=== PATIENT | male | born 1990 | race African-American/Black ===

== ENCOUNTER 2017-02-09 06:43 | Emergency (ER) | payer OTHER ==
[~2017-02-09] VITALS: Ht 185.4 cm; Wt 80.0 kg
[2017-02-09 06:44] VITALS: BP 139/91; PULSE 86; RESP 16; TEMP 98.5; O2SAT 99
[2017-02-09] MEDS ORDERED: BACT800T5 PO (07:18)
[2017-02-09] MEDS ORDERED: IBUP800T23 PO (07:18)
[2017-02-09] MEDS ORDERED: CEPH-460 PO (07:18)
--- NOTE | 2017-02-09 07:18 | PD ---
HPI Chief Complaint: Lump, Cyst, Hernia Time Seen by Provider: 07:16 Travel History International Travel<30 days: No Contact w/Intl Traveler<30days: No Traveled to known affect area: No History of Present Illness HPI 26-year-old male presents to the emergency Department with complaint of a "rising" to his left armpit since yesterday. Denies fever, vomiting. Has not taken any medications or tried any treatments to relieve these symptoms. No known relieving factors. Has no medical complaints. No known allergies. No other modifying factors or associated signs and symptoms. PFSH Past Medical History Diminished Hearing: No Immunizations Current: Yes Past Surgical History Other Surgery: Yes ("300 STITCHES ON LEFT HIP") Social History Alcohol Use: Yes (SOCIALLY) Tobacco Use: Yes (0.5 PPD) Substance Use: No Allergies-Medications (Allergen,Severity, Reaction): Coded Allergies: No Known Allergies (Unverified , 02/09/17) Reported Meds & Prescriptions Reported Meds & Active Scripts Active Ibuprofen 800 Mg Tab 800 Mg PO Q6HR PRN Bactrim DS (Sulfamethoxazole-Trimethoprim) 800-160 Mg Tab 1 Tab PO BID 10 Days Keflex (Cephalexin) 500 Mg Cap 500 Mg PO Q6H 10 Days Review of Systems Except as stated in HPI: all other systems reviewed are Neg Physical Exam Narrative GENERAL: Well-nourished, well-developed male patient, in no acute distress; afebrile, nontoxic-appearing SKIN: There is an indurated area to the left axilla which measures about 1 cm in diameter. It is nonfluctuant and there is no pointing or drainage. There is a zone of inflammation around it but no lymphangitis. No axillary lymphadenopathy. HEAD: Atraumatic. Normocephalic. EYES: Pupils equal and round. No scleral icterus. No injection or drainage. ENT: Mucosa pink and moist. Airway patent. NECK: Trachea midline. No lymphadenopathy. CARDIOVASCULAR: Regular rate. RESPIRATORY: No accessory muscle use. GASTROINTESTINAL: Flat. MUSCULOSKELETAL: No obvious deformities. No clubbing. No cyanosis. No edema. NEUROLOGICAL: Awake and alert. Oriented 3. No obvious cranial nerve deficits. Motor grossly within normal limits. Normal speech. PSYCHIATRIC: Appropriate mood and affect; insight and judgment normal. Data Data Last Documented VS Vital Signs Date Time Temp Pulse Resp B/P Pulse Ox O2 Delivery O2 Flow Rate FiO2 02/09/17 06:44 98.5 86 16 139/91 99 MDM Medical Decision Making Medical Screen Exam Complete: Yes Emergency Medical Condition: Yes Medical Record Reviewed: Yes Differential Diagnosis Abscess, cellulitis, folliculitis Narrative Course 26-year-old male physical exam consistent with a nonfluctuant abscess to the left axilla. Patient is afebrile and nontoxic-appearing. Denies fever, vomiting. Instructed patient to return to emergency Department for incision and drainage with worsening of the abscess despite antibiotics. Keflex, Bactrim , ibuprofen prescribed for home. Instructed patient to follow up with primary care provider. Patient verbalizes understanding and agreement with treatment plan. Patient is medically cleared and stable for discharge. Discussed reasons to return to the emergency department. Patient agrees with treatment plan. The patients vital signs are stable and the patient is stable for outpatient follow-up and treatment. Patient discharged home, stable and in no acute distress. Diagnosis Primary Impression: Abscess of axilla, left Referrals: Primary Care Physician Patient Instructions: Abscess (ED), Abscess Follow-up (ED), Abscess Incision and Drainage (ED), General Instructions Departure Forms: Tests/Procedures, Work Release Enter return to work date: Feb 11, 2017 Additional Instructions: Complete full course of antibiotics Warm compresses to the affected area Keep area clean and dry Ibuprofen or Tylenol as directed and as needed for pain and inflammation Follow-up with primary care provider Return to emergency department immediately with worsening of symptoms Med/Other Pt SpecificInfo: Prescription(s) given Scripts Ibuprofen 800 Mg [id number] Mg PO Q6HR PRN (PAIN) #30 TAB Ref 0 Prov:Mahi Kaiser 02/09/17 Sulfamethoxazole-Trimethoprim (Bactrim DS)800-160 Mg Tab1 Tab PO BID 10 Days Ref 0 Prov:Mhai Kaiser 02/09/17 Cephalexin (Keflex)500 Mg [id number] Mg PO Q6H 10 Days Ref 0 Prov:Mhai Kaiser 02/09/17 Disposition: 01 DISCHARGE HOME Condition: Stable Mahi Kaiser Feb 09, 2017 07:18
== END 2017-02-09 07:25 | disposition home or self-care (01) ==
LOC: NEPD 06:43
DX: L02.412 Cutaneous abscess of left axilla (principal); F17.210 Nicotine dependence, cigarettes, uncomplicated
CPT/HCPCS: 99284

== ENCOUNTER 2017-03-04 22:58 | Emergency (ER) | payer OTHER ==
[~2017-03-04] VITALS: Ht 185.4 cm; Wt 77.3 kg
[~2017-03-04 22:58] MED LIST: BACT800T5 PO; CEPH-460 PO; IBUP800T23 PO
[2017-03-04 23:09] VITALS: BP 165/113; PULSE 74; RESP 16; TEMP 98.3; O2SAT 99
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
[2017-03-05] MEDS ORDERED: IBUP400T20 PO (00:20)
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
[2017-03-05] MEDS ORDERED: CYCL1TAB29 PO (00:23)
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
[2017-03-05] MEDS ORDERED: KETOROLAC TROMETHAMINE 60 MG/2 ML (IM) VIAL IM ONE (00:30)
[2017-03-05] MEDS ORDERED: CYCLOBENZAPRINE HCL 10 MG TAB PO ONE (00:30)
[2017-03-05 00:50] VITALS: BP 168/82
== END 2017-03-05 01:20 | disposition home or self-care (01) ==
LOC: NEPD 22:58
DX: M54.2 Cervicalgia (principal); M54.5 Low back pain; V29.9XXA Motorcycle rider (driver) (passenger) injured in unspecified traffic accident, initial encounter; Y92.414 Local residential or business street as the place of occurrence of the external cause
CPT/HCPCS: 70450; 71010; 72100; 72125; 96372; 99285; J1885

== ENCOUNTER 2017-08-19 11:44 | Emergency (ER) | payer OTHER ==
[~2017-08-19] VITALS: Ht 185.4 cm; Wt 71.0 kg
[~2017-08-19 11:44] MED LIST changes: +CYCL10TA PO; +IBUP1TAB5 PO; +IBUP1TAB7 PO; -IBUP800T23 PO
[2017-08-19 11:53] VITALS: BP 140/81; PULSE 94; RESP 16; TEMP 98.8; O2SAT 97
[2017-08-19] MEDS ORDERED: BUPIVACAINE HCL PF 0.5% 10 ML VIAL INFIL ONE (12:45)
[2017-08-19] MEDS ORDERED: LIDOCAINE HCL 1% 50 ML VIAL INFIL ONE (12:45)
[2017-08-19] MEDS ORDERED: LIDOCAINE HCL 1% 20 ML VIAL INFIL ONE (13:00)
--- NOTE | 2017-08-19 13:11 | RADRPT ---
EXAM DATE/TIME: 08/19/2017 12:51 [facility] COMPARISON: No previous studies available for comparison. INDICATIONS : Right thumb smashed by forklift at [facility] today. MEDICAL HISTORY : None. SURGICAL HISTORY : None. ENCOUNTER: Initial ACUITY: 1 day PAIN SCORE: 4/10 LOCATION: Right thumb FINDINGS: Examination of the first digit of the right hand demonstrates a comminuted fracture of the tip of the first distal phalangeal bone. No radiopaque foreign bodies are seen. The soft tissues are intact. CONCLUSION: There is a comminuted fracture of the tip of the first distal phalange of bone. Linwood Miguel MD on August 19, 2017 at 13:09 Board Certified Radiologist. This report was verified electronically.
[2017-08-19] MEDS ORDERED: NAPR500 PO (15:00)
[2017-08-19] MEDS ORDERED: CEPHALEXIN MONOHYDRATE 500 MG CAP PO ONE (15:00)
[2017-08-19] MEDS ORDERED: CEPH-460 PO (15:00)
--- NOTE | 2017-08-19 15:05 | PD ---
HPI Chief Complaint: Injury Time Seen by Provider: 12:29 Travel History International Travel<30 days: No Contact w/Intl Traveler<30days: No Traveled to known affect area: No History of Present Illness HPI Patient comes emergency Department complaining of right thumb injury that occurred while at work shortly prior to arrival. Patient reports that he injured his thumb accidentally having it crushed by a machine at work. Patient denies any pain with this or radiation of pain. Denies doing anything for this prior coming emergency department. Reports tetanus shot is up-to-date. Patient denies anything making symptoms better or worse. Denies any numbness or tingling. PFSH Past Medical History Medical History: Denies Significant Hx Diminished Hearing: No Immunizations Current: Yes Tetanus Vaccination: < 5 Years Past Surgical History Other Surgery: Yes ("300 STITCHES ON LEFT HIP") Social History Alcohol Use: Yes (SOCIALLY) Tobacco Use: Yes (0.5 PPD) Substance Use: Yes (MJ) Allergies-Medications (Allergen,Severity, Reaction): Coded Allergies: No Known Allergies (Unverified Allergy, Unknown, 08/19/17) Reported Meds & Prescriptions Reported Meds & Active Scripts Active Naprosyn (Naproxen) 500 Mg Tab 500 Mg PO Q12HR PRN Keflex (Cephalexin) 500 Mg Cap 500 Mg PO Q8H Review of Systems Except as stated in HPI: all other systems reviewed are Neg Physical Exam Narrative GENERAL: Well-developed, well nourished, in no acute distress, and non-ill appearing. SKIN: Laceration noted to the nail bed of the right thumb. Patient is neurovascularly intact distally. There is no foreign body noted. Reports mild tenderness to palpation. No crepitus. Full range of motion right thumb. No tenderness over the anatomical snuffbox. HEAD: Atraumatic. Normocephalic. EYES: Pupils equal and round. EOMI. No scleral icterus. No injection or drainage. ENT: No nasal bleeding or discharge. Mucous membranes pink and moist. NECK: Trachea midline. Supple. No nuclear rigidity. CARDIOVASCULAR: Capillary refill less than 2 seconds. RESPIRATORY: No accessory muscle use. No respiratory distress. MUSCULOSKELETAL: No obvious deformities. No clubbing. No cyanosis. No edema. Full range of motion. NEUROLOGICAL: Awake and alert. No obvious cranial nerve deficits. Motor grossly within normal limits. Normal speech. PSYCHIATRIC: Appropriate mood and affect; insight and judgment normal. Data Data Last Documented VS Vital Signs Date Time Temp Pulse Resp B/P (MAP) Pulse Ox O2 Delivery O2 Flow Rate FiO2 08/19/17 11:53 98.8 94 16 140/81 (100) 97 Orders Orders Bupivacaine Pf 0.5% Inj (Marcaine Pf 0.5 (08/19/17 12:45) Finger ([id number]) (08/19/17 ) Lidocaine 1% Inj (Xylocaine 1% Inj) (08/19/17 13:00) Cephalexin (Keflex) (08/19/17 15:00) Ed Discharge Order (08/19/17 14:58) Splint Or Brace Apply/Monitor (08/19/17 14:58) Finger Splint (08/19/17 ) [facility] Medical Decision Making Medical Screen Exam Complete: Yes Emergency Medical Condition: Yes Interpretation(s) Last Impressions Finger X-Ray 08/19/17 0000 Signed Impressions: Service Date/Time: August 12:51 - CONCLUSION: There is a comminuted fracture of the tip of the first distal phalange of bone. Linwood Miguel MD Differential Diagnosis Laceration, abrasion, contusion, fracture, crush injury Narrative Course The patient sustained a fracture. Distally appears neurovascularly intact, without evidence of neurovascular injury nor compartment syndrome. Tendon exam also was intact. The effected limb was splinted. The patient was discharged on pain medication along with fracture and splint care instructions and given warnings for vascular compromise. The patient is to follow up with hand surgeon. The patient agrees with plan. The patient suffered laceration to the thumb. There was no evidence to suggest foreign bodies. Visual, tactile and radiographic exams were unremarkable without evidence of foreign body at this time. There was no evidence of neurovascular injury. The patient had a normal distal vascular exam, and had full normal motor and sensory exams. There was also no evidence or tendon injury , with normal distal full range of motions, flexion, extension, abduction, adduction and opponens. There was no evidence of local joint space involvement at this time. The patient was irrigated with copious sterile normal saline and primary repair was performed. Please see procedure note. The patient was given signs and symptom warnings for infection, such as increasing pain, redness, swelling, associated heat, pus or fever. The patient was warned of possible unseen foreign body and instructed to return immediately if signs or symptoms develop. The patient was given instructions for timely follow up and for removal. The patient agreed with plan of care. Patient in no obvious distress upon re-evaluation. All pertinent Radiology result(s) discussed with patient. Patient was asked if they wanted to speak to my attending, which the patient did not wish to do at this time. Any questions/ concerns in reference to patient diagnosis/condition discussed and clarified prior to patient's discharge. Reinforced sheer importance of close follow up with patient's Workmen's Comp. provider and hand surgeon. Instructed patient to return to ED immediately, if symptoms return/worsen. Patient showed understanding of above instructions. Further instructions and recommendations were detailed in discharge paperwork. Patient ambulated without difficulty out of ED at discharge. Procedures Procedure Narrative LACERATION REPAIR LOCATION: Right thumb nailbed LENGTH: Approximately 2 cm in total length NUMBER OF STITCHES/LUCIO: 3 simple interrupted REPAIR: Verbal consent was obtained. The area of the laceration was cleaned and prepped. Digital block was performed using a mixture of Marcaine without epi and lidocaine without epi. The wound and nailbed was copiously irrigated and explored without evidence of foreign body, bony involvement, ligament injury , tendon injury, or neurovascular injury. The nail was reinserted into the nailbed and secured/wound was closed using 5-0 Prolene. This was a single layer repair. A sterile dressing was applied by nurse. The patient was advised to keep the affected area as clean and dry as possible using soap and water. There were no complications. Patient tolerated the procedure well. Physician Communication Physician Communication [phone] Carter and specialist on-call, who recommends reinserting nail into the nailbed suturing down, placing a finger splint, Keflex , and outpatient follow-up. Diagnosis Primary Impression: Fracture of thumb, right open Qualified Codes: S62.521B - Displaced fracture of distal phalanx of right thumb, initial encounter for open fracture Additional Impression: Nailbed laceration, finger Qualified Codes: S61.319A - Laceration without foreign body of unspecified finger with damage to nail, initial encounter Referrals: Deo Irby MD Patient Instructions: Care For Your Stitches (GEN), Finger Fracture (DC), Finger Laceration (ED), General Instructions, Splint Care (DC) Additional Instructions: Follow-up with your workmen's comp provider and/or hand surgeon next week. Take all medication as prescribed. Keep wound dry and clean as possible using soap and water. Use Neosporin to promote healing. Don't soak or submerge wound. Return to the emergency department if symptoms get worse. Med/Other Pt SpecificInfo: Prescription(s) given Scripts Naproxen (Naprosyn) 500 Mg Tab 500 MG PO Q12HR Y for PAIN SCALE 1 TO 10, #14 TAB 0 Refills Prov: Sruthi Coleman MD 08/19/17 Cephalexin (Keflex) 500 Mg Cap 500 MG PO Q8H for Infection, #30 CAP 0 Refills Prov: Sruthi Coleman MD 08/19/17 Disposition: 01 DISCHARGE HOME Condition: Stable Cornel Kerr Aug 19, 2017 15:05
== END 2017-08-19 15:24 | disposition home or self-care (01) ==
LOC: PHEFT 11:44
DX: S62.521B Displaced fracture of distal phalanx of right thumb, initial encounter for open fracture (principal); S61.111A Laceration without foreign body of right thumb with damage to nail, initial encounter; F17.210 Nicotine dependence, cigarettes, uncomplicated; W31.9XXA Contact with unspecified machinery, initial encounter; Y99.0 Civilian activity done for income or pay
CPT/HCPCS: 11760; 64450; 73140

== ENCOUNTER 2017-08-22 23:08 | Emergency (ER) | payer OTHER ==
[~2017-08-22] VITALS: Ht 188 cm; Wt 75.0 kg
[~2017-08-22 23:08] MED LIST changes: -BACT800T5 PO; -CYCL10TA PO; -IBUP1TAB5 PO; -IBUP1TAB7 PO; +NAPR500 PO
[2017-08-22 23:09] VITALS: BP 145/96; PULSE 105; RESP 16; TEMP 98.6; O2SAT 98
[2017-08-22] MEDS ORDERED: TRAM50 PO (23:47)
[2017-08-22] MEDS ORDERED: BACT800T5 PO (23:47)
--- NOTE | 2017-08-22 23:51 | PD ---
HPI Chief Complaint: Skin Problem Time Seen by Provider: 23:44 Travel History International Travel<30 days: No Contact w/Intl Traveler<30days: No Traveled to known affect area: No History of Present Illness HPI ONE DAY HISTORY OF NOTICING A LUMP TO HIS BUTTCHEEK AREA. PAINFUL TO SEAT, 5/10 , NONRAD. DENIES ANY ALLEVIATING/AGGRAVATING FACTORS. DENIES ASSOC FACTORS SUCH FEVER/N/V/D/CP/ABD PAIN/BACK PAIN/ PFSH Past Medical History Diminished Hearing: No Immunizations Current: Yes Past Surgical History Other Surgery: Yes ("300 STITCHES ON LEFT HIP") Social History Alcohol Use: Yes (SOCIALLY) Tobacco Use: Yes (0.5 PPD) Substance Use: Yes (MJ) Allergies-Medications (Allergen,Severity, Reaction): Coded Allergies: No Known Allergies (Unverified Allergy, Unknown, 08/22/17) Reported Meds & Prescriptions Reported Meds & Active Scripts Active Naprosyn (Naproxen) 500 Mg Tab 500 Mg PO Q12HR PRN Keflex (Cephalexin) 500 Mg Cap 500 Mg PO Q8H Review of Systems Except as stated in HPI: all other systems reviewed are Neg General / Constitutional: No: Fever Eyes: No: Visual changes HENT: No: Headaches Cardiovascular: No: Chest Pain or Discomfort Respiratory: No: Shortness of Breath Gastrointestinal: No: Abdominal Pain Genitourinary: No: Dysuria Musculoskeletal: No: Pain Skin: Positive Lesions Neurologic: No: Weakness Psychiatric: No: Depression Endocrine: No: Polydipsia Hematologic/Lymphatic: No: Easy Bruising Physical Exam Narrative GENERAL: SKIN: Warm and dry. HEAD: Atraumatic. Normocephalic. EYES: Pupils equal and round. No scleral icterus. No injection or drainage. ENT: No nasal bleeding or discharge. Mucous membranes pink and moist. NECK: Trachea midline. No JVD. CARDIOVASCULAR: Regular rate and rhythm. RESPIRATORY: No accessory muscle use. Clear to auscultation. Breath sounds equal bilaterally. GASTROINTESTINAL: Abdomen soft, non-tender, nondistended. RIGHT GLUTEAL MEDIAL AREA HAS A NICKEL SIZE INDURATED AREA, NO FLUCTUANCE, ERYTHEMATOUS, NO STREAKING MUSCULOSKELETAL: Extremities without clubbing, cyanosis, or edema. No obvious deformities. NEUROLOGICAL: Awake and alert. No obvious cranial nerve deficits. Motor grossly within normal limits. Five out of 5 muscle strength in the arms and legs. Normal speech. PSYCHIATRIC: Appropriate mood and affect; insight and judgment normal. Data Data Last Documented VS Vital Signs Date Time Temp Pulse Resp B/P (MAP) Pulse Ox O2 Delivery O2 Flow Rate FiO2 08/22/17 23:09 98.6 105 16 145/96 (112) 98 Room Air MDM Medical Decision Making Medical Screen Exam Complete: Yes Emergency Medical Condition: Yes Medical Record Reviewed: Yes Differential Diagnosis CELLULITIS V CYST V ABSCESS Narrative Course CLINICALLLY INDURATED AND NONFLUCTUANT C/W PILONIDAL CELLULITIS Diagnosis Primary Impression: PILONIDAL CELLULITIS Patient Instructions: General Instructions, Pilonidal Cyst (ED) Departure Forms: Tests/Procedures, Work Release Enter return to work date: Aug 27, 2017 Scripts Tramadol (Ultram) 50 Mg Tab 50 MG PO Q4H Y for PAIN, #12 TAB 0 Refills Prov: Shaheen Peralta MD 08/22/17 Sulfamethoxazole-Trimethoprim (Bactrim DS) 800-160 Mg Tab 1 TAB PO BID for Infection, #20 TAB 0 Refills Prov: Shaheen Peralta MD 08/22/17 Disposition: 01 DISCHARGE HOME Condition: Stable Shaheen Peralta MD Aug 22, 2017 23:51
== END 2017-08-23 00:07 | disposition home or self-care (01) ==
LOC: NEPD 23:08
DX: L05.01 Pilonidal cyst with abscess (principal); F17.200 Nicotine dependence, unspecified, uncomplicated
CPT/HCPCS: 99284

== ENCOUNTER 2018-01-25 22:38 | Emergency (ER) | payer OTHER ==
[~2018-01-25] VITALS: Ht 185.4 cm; Wt 68.0 kg
[~2018-01-25 22:38] MED LIST changes: +BACT800T5 PO; +TRAM50 PO
[2018-01-25 22:53] VITALS: BP 142/81; PULSE 88; RESP 20; TEMP 99.2; O2SAT 99
--- NOTE | 2018-01-25 23:19 | PD ---
HPI Chief Complaint: Cold / Flu Symptoms Time Seen by Provider: 22:58 Travel History International Travel<30 days: No Contact w/Intl Traveler<30days: No Traveled to known affect area: No History of Present Illness HPI 27-year-old male presents for evaluation. For 1 day he has had a scratchy throat, nasal congestion, cough, fatigue and myalgias. Symptoms are moderate with no aggravating or relieving factors. Duration one day. No associated signs or symptoms. He reports several people have called out from work recently with various illnesses. He denies abdominal pain, nausea or vomiting, diarrhea, rash or recent travel. No other complaints. PFSH Past Medical History Diminished Hearing: No Immunizations Current: Yes Past Surgical History Other Surgery: Yes ("300 STITCHES ON LEFT HIP", L thumb) Social History Alcohol Use: Yes (SOCIALLY) Tobacco Use: Yes (0.5 PPD) Substance Use: Yes (marijuana) Allergies-Medications (Allergen,Severity, Reaction): Coded Allergies: No Known Allergies (Unverified Allergy, Unknown, 01/25/18) Reported Meds & Prescriptions Reported Meds & Active Scripts Active Tessalon Perles (Benzonatate) 100 Mg Cap 100 Mg PO TID PRN Flonase Nasal Gans (Fluticasone Nasal Gans) 50 Mcg/Act Gans 100 Mcg EACH NARE BID Ultram (Tramadol HCl) 50 Mg Tab 50 Mg PO Q4H PRN Bactrim DS (Sulfamethoxazole-Trimethoprim) 800-160 Mg Tab 1 Tab PO BID Naprosyn (Naproxen) 500 Mg Tab 500 Mg PO Q12HR PRN Keflex (Cephalexin) 500 Mg Cap 500 Mg PO Q8H Review of Systems Except as stated in HPI: all other systems reviewed are Neg Physical Exam Narrative GENERAL: Well-nourished male in no acute distress SKIN: Warm and dry. HEAD: Atraumatic. Normocephalic. EYES: Pupils equal and round. No scleral icterus. No injection or drainage. ENT: No nasal bleeding or discharge. Mucous membranes pink and moist. Tympanic movements appear normal without erythema or fluid level. There is no oropharyngeal erythema or exudate. No stridor or drooling. NECK: Trachea midline. No JVD. No lymphadenopathy. Neck supple full range of motion. CARDIOVASCULAR: Regular rate and rhythm. No murmur appreciated. RESPIRATORY: No accessory muscle use. Clear to auscultation. Breath sounds equal bilaterally. No crackles no wheezing or rhonchi GASTROINTESTINAL: Abdomen soft, non-tender, nondistended. Hepatic and splenic margins not palpable. Data Data Last Documented VS Vital Signs Date Time Temp Pulse Resp B/P (MAP) Pulse Ox O2 Delivery O2 Flow Rate FiO2 01/25/18 22:53 99.2 88 20 142/81 (101) 99 Orders Orders Influenzae A/B Antigen (01/25/18 23:13) Ed Discharge Order (01/26/18 00:43) MDM Medical Decision Making Medical Screen Exam Complete: Yes Emergency Medical Condition: Yes Medical Record Reviewed: Yes Differential Diagnosis Rhinitis, sinusitis, bronchitis, pneumonia, influenza, pharyngitis, tonsillitis Narrative Course 27-year-old male with 1 day of dry cough, nasal congestion, myalgias, sore throat. He appears well. I suspect a viral respiratory tract infection. Influenza antigen was performed and is negative. Patient is stable for discharge. Diagnosis Primary Impression: Upper respiratory infection Additional Instructions: Medication as prescribed. Avoid tobacco use. Return for any emergent medical conditions. Med/Other Pt SpecificInfo: Prescription(s) given Scripts Benzonatate (Tessalon Perles) 100 Mg Cap 100 MG PO TID Y for COUGH, #30 CAP 0 Refills Prov: Linwood York MD 01/25/18 Fluticasone Nasal Gans (Flonase Nasal Gans) 50 Mcg/Act Gans 100 MCG EACH NARE BID for Allergies, #1 BOTTLE 0 Refills Prov: Linwood York MD 01/25/18 Disposition: 01 DISCHARGE HOME Condition: Stable Jacobo David Jan 25, 2018 23:19
[2018-01-25] MEDS ORDERED: BENZ100 PO (23:20)
[2018-01-25] MEDS ORDERED: FLUT1SPR5 EACH NARE (23:20)
== END 2018-01-26 01:30 | disposition home or self-care (01) ==
LOC: NEPD 22:38
DX: J06.9 Acute upper respiratory infection, unspecified (principal); F17.200 Nicotine dependence, unspecified, uncomplicated; F12.90 Cannabis use, unspecified, uncomplicated; Z79.899 Other long term (current) drug therapy
CPT/HCPCS: 87804; 99283